=== PATIENT | female | born 1965 | race Caucasian/White ===

== ENCOUNTER 2018-01-24 08:02 | Outpatient (CLI) | payer BC ==
[2018-01-24 09:04] LABS: eGFR (African) > 60; eGFR (Non-African) > 60
== END 2018-01-24 08:03 ==
LOC: LAB 08:02
PROVIDERS: ATTEND Family Medicine
DX: Z00.00 Encounter for general adult medical examination without abnormal findings (principal)
CPT/HCPCS: 36415; 80053; 80061

== ENCOUNTER 2018-03-06 08:28 | Day surgery (SDC) | payer BC ==
--- NOTE | 2018-03-06 11:10 | GI Report ---
REFERRING PHYSICIAN: Dr. Callie Hummel DIRECTOR MEDICAID: Daniel Billings MD PROCEDURE MEDICATION: Propofol as per anesthesia. INDICATIONS: This 52-year-old woman is referred for a screening colonoscopy. She denies any changes in her stools or bleeding. Her father had colon polyps and paternal grandmother had colon cancer. She has had no abdominal surgery except for a gynecological surgery. PROCEDURE PERFORMED: Colonoscopy. PROCEDURE: An Olympus video colonoscope was advanced to the rectum. She does have some hemorrhoids, internal and external. The colonoscope was advanced all the way to the cecum. The appendiceal orifice and terminal ileum were normal. On slow withdrawal, the cecum, ascending colon, and transverse colon with no obvious intraluminal lesions noted. The descending colon and sigmoid, no obvious intraluminal lesions were noted. Retroflexion of the rectum shows internal hemorrhoids. Patient tolerated the procedure well. FINDINGS: Normal mucosa to the cecum. RECOMMENDATIONS: 1. Increase fiber in the diet. 2. Would consider adding a fiber supplement like Benefiber. 3. Re-look at her colon within 7 to 10 years, in that she does have second- degree relatives with colon cancer and her father has had polyps. cc: Dr. Callie LOPEZ
[2018-03-06] MEDS ORDERED: LACTATED RINGERS 1,000 ML IV.SOLN IV ONE (12:00)
[2018-03-06] MEDS ORDERED: PROPOFOL 200 MG/20 ML VIAL IV ONE (12:00)
[2018-03-06] MEDS ORDERED: 0.9 % SODIUM CHLORIDE 500 ML IV ONE (12:00)
== END 2018-03-06 08:30 ==
LOC: OPSURG 08:28
PROVIDERS: ATTEND Internal Medicine Gastroenterology
DX: Z12.11 Encounter for screening for malignant neoplasm of colon (principal)
CPT/HCPCS: 81025; J2704; J7060; J7120; 45378; S1016

== ENCOUNTER 2019-06-14 14:29 | Outpatient (CLI) | payer BC ==
--- NOTE | 2019-06-21 11:25 | OP Clinic Progress Note ---
DATE OF VISIT: 06/14/2019 SUBJECTIVE: Yesenia is a 53-year-old female presenting to the clinic today for left plantar heel pain. She was seen by me recently for left heel plantar fasciitis and has been doing stretching exercises and she has been using her PowerStep inserts and is doing ice and she stopped doing her ibuprofen as much as she was supposed to for a week because she finished that week course. She states that once she stopped using ibuprofen as frequently she started getting more pain again in the left plantar heel. She states the pain is still first few steps in the morning as well as after she sits down it hurts a lot for her to get up and walk again. She has had plantar fasciitis in the past before and most recently the second time she has had plantar fasciitis began this past spring of this year. She has a night splint and she has tried using that as well with her knee straight sitting down and watching TV and it does not seem to be helping a whole lot. Overall the pain is slightly better than when she first saw me, but she is hoping to go ahead and obtain a plantar fascia steroid injection as she has never tried that before. She does not admit to any fevers, chills, nausea, vomiting, shortness of breath or chest pain. She denies any allergies and denies being diabetic. OBJECTIVE: Vitals: Temperature 99.1 degrees Fahrenheit, heart rate 66, respiration rate 16, blood pressure 137/77. O2 saturation is 99% on room air. Vascular: 2+ DP and PT pulses, left foot. Capillary refill time is less than 3 seconds to the toes left foot. No edema noted, left foot. Dermatologic: There is no ecchymosis or erythema or any open lesions or skin lesions noted left foot. Musculoskeletal: Pain on palpation is noted at the plantar medial calcaneal tubercle of the left foot. There is from previous exam notable ankle dorsiflexion at least to 10 degrees with the knee extended on the left and Improved slightly more with the left knee flexed. There are no other gross abnormalities noted left foot. Neurologic: Light touch sensation is intact to the toes, left foot. ASSESSMENT AND PLAN: 1. Plantar fasciitis of the left foot, M72.2. We discussed the risk and benefits of a steroid injection in the left plantar heel including but not limited to bleeding, infection, steroid flare and the patient has agreed both by written and verbal consent to go forward with a steroid injection into the left plantar fascia origin today. DETAIL OF STEROID INJECTION: An alcohol swab was utilized to cleanse the area over the plantar medial calcaneal tubercle of the left foot and an injection consisting of 1 cc of 2% lidocaine plain, 1 cc of 0.5% Marcaine plain, 0.5 cc of dexamethasone 4 mg/mL and 0.5 cc of Kenalog 40 mg/mL was injected into the plantar fascia area of the left heel. Hemostasis was obtained with pressure and a Band-Aid was applied. The patient was given instructions on watching for any signs of erythema and to notify me if there is any concern so I can start her on antibiotic. If this happens over the weekend she was encouraged to go to an ER or urgent care as needed. The patient will follow up with me in one month from now and if we need to do a repeat injection because it has not improved all the way I will consider one more injection. If that does not help then we will consider physical therapy and then we will look at a couple of different surgical options if physical therapy is not helping. The patient understands this is the plan. We will see her in one month. Ousmane Heard D.P.M./[employer] [id number] R: 06/20/19 /mab MTDD
== END 2019-06-14 14:59 ==
LOC: POD 14:29
PROVIDERS: ATTEND Podiatrist Foot & Ankle Surgery
DX: M72.2 Plantar fascial fibromatosis (principal)
CPT/HCPCS: 20610; 99213; J1100; J2001; J3301; J3490; A4554